=== PATIENT | female | born 1955 | race Asian ===

== ENCOUNTER 2016-07-17 14:22 | Emergency (ER) | payer OTHER ==
[~2016-07-17] VITALS: Ht 152.4 cm; Wt 65.8 kg
[2016-07-17 14:55] VITALS: BP 131/65
[2016-07-17] MEDS ORDERED: KETOROLAC 60 MG/2 ML VIAL IM ONE (15:55)
--- NOTE | 2016-07-17 16:33 | NUR ---
PT TO BED 8.
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
--- NOTE | 2016-07-17 16:42 | NUR ---
ABRASIONS TO LEFT ELBOW AND FOREARM AREA, NO ACTIVE SIGNS OF BLEEDING
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
--- NOTE | 2016-07-17 17:17 | NUR ---
DR MONTILLA AT BEDSIDE
--- NOTE | 2016-07-17 17:25 | NUR ---
PATIENT RESTING IN BED, NO VISABLE SIGNS OF DISTRESS, CLEANED ABRASION ON LEFT ELBOW AND DRESSED WITH A BANDAGE.
--- NOTE | 2016-07-17 17:31 | NUR ---
Patient discharged with v/s stable. Written and verbal after care instructions given and explained. Patient alert, oriented and verbalized understanding of instructions. Ambulatory with steady gait. All questions addressed prior to discharge. ID band removed. Patient advised to follow up with PMD. Rx of NORCO, AND MOTRIN given. Patient educated on indication of medication including possible reaction and side effects. Opportunity to ask questions provided and answered.
[2016-07-17 17:32] VITALS: BP 122/61
== END 2016-07-17 17:31 | disposition home or self-care (01) ==
LOC: MED 14:22
DX: S90.32XA Contusion of left foot, initial encounter (principal); M25.562 Pain in left knee; M54.2 Cervicalgia; R07.89 Other chest pain; E11.9 Type 2 diabetes mellitus without complications; I10 Essential (primary) hypertension; F17.200 Nicotine dependence, unspecified, uncomplicated; Z88.8 Allergy status to other drugs, medicaments and biological substances; V03.90XA Pedestrian on foot injured in collision with car, pick-up truck or van, unspecified whether traffic or nontraffic accident, initial encounter; Y93.01 Activity, walking, marching and hiking; Y92.89 Other specified places as the place of occurrence of the external cause; Y99.8 Other external cause status
CPT/HCPCS: 71020; 72040; 96372; 99284; J1885

== ENCOUNTER 2017-01-11 20:12 | Emergency (ER) | payer OTHER ==
[~2017-01-11] VITALS: Ht 149.9 cm; Wt 65.8 kg
[2017-01-11 20:20] VITALS: BP 143/56
[2017-01-11 21:17] VITALS: BP 143/56
== END 2017-01-11 20:55 | disposition home or self-care (01) ==
LOC: MED 20:12
DX: G89.29 Other chronic pain (principal); M54.6 Pain in thoracic spine; F32.9 Major depressive disorder, single episode, unspecified; F41.9 Anxiety disorder, unspecified; E11.9 Type 2 diabetes mellitus without complications; I10 Essential (primary) hypertension; Z88.8 Allergy status to other drugs, medicaments and biological substances
CPT/HCPCS: 99283

== ENCOUNTER 2023-06-27 15:12 | Emergency (ER) | payer OTHER, MEDICAID ==
[~2023-06-27] VITALS: Ht 147.3 cm; Wt 53.1 kg
[2023-06-27 15:13] VITALS: BP 136/86; PULSE 97; RESP 18; TEMP 98.2; O2SAT 98
[2023-06-27] MEDS: ACETAMINOPHEN 325 MG TAB PO ONE (15:42)
== END 2023-06-27 16:03 | disposition home or self-care (01) ==
LOC: MED 15:12
DX: R07.89 Other chest pain (principal); I10 Essential (primary) hypertension; E11.9 Type 2 diabetes mellitus without complications; Z88.8 Allergy status to other drugs, medicaments and biological substances
CPT/HCPCS: 93005; 99283